=== PATIENT | female | born 1995 | race American Indian/Alaskan Native ===

== ENCOUNTER 2018-04-07 17:40 | Emergency (ER) | payer SELFPAY ==
[2018-04-07 18:31] LABS: Basophils % (Auto) 0.4 % (0.0-1.8); Lymphocytes # (Auto) 0.9 K/mm3 (1.2-5.4); Lymphocytes % (Auto) 10.1 % (13.4-35.0); Monocytes # (Auto) 0.3 K/mm3 (0.0-0.8); Monocytes % (Auto) 3.8 % (0.0-7.3)
[2018-04-07] MEDS ORDERED: NACL 0.9% 1000 ML 1,000 ML IV ONE (18:31)
[2018-04-07 18:42] LABS: Hematocrit 38.5 % (30.3-42.9); Hemoglobin 13.8 gm/dl (10.1-14.3); Mean Corpuscular HGB Conc 36 % (30-34); Mean Corpuscular Hemoglobin 32 pg (28-32); Mean Corpuscular Volume 90 fl (79-97); Red Blood Count 4.27 M/mm3 (3.65-5.03)
[2018-04-07 18:43] LABS: Mean Platelet Volume 7.4 fl (6-12); Platelet Count 366 K/mm3 (140-440); Red Cell Distribution Width 13.4 % (13.2-15.2)
[2018-04-07 18:45] LABS: Alanine Aminotransferase 13 units/L (7-56); Albumin 4.4 g/dL (3.9-5); BUN/Creatinine Ratio 10; Blood Urea Nitrogen 7 mg/dL (7-17); Calcium 9.4 mg/dL (8.4-10.2); Hemolysis Index 3
[2018-04-07] MEDS ORDERED: FIORICET PO ONE (18:50)
[2018-04-07 19:10] LABS: Creatine Kinase MB 1.8 ng/mL (0.0-4.0)
[2018-04-07 19:21] LABS: Free T4 (Free Thyroxine) 1.36 ng/dL (0.76-1.46)
--- NOTE | 2018-04-07 19:30 | Emergency Department Report ---
HPI - General Chief Complaint: Chest Pain Time Seen by Provider: 04/07/18 18:20 - HPI HPI: Room 26 The patient is a 22-year-old female presenting with chief complaint of palpitations and headache. The patient states for one week she's intermittent palpitations headache patient states at times she is taking both arms and both legs. The patient states she went to [facility] Tuesday was evaluated with imaging and EKG and diagnosed with anxiety. Patient was discharged. The patient states she went to [facility] emergency department where she had a CT of the head performed which was negative. The patient was found banging her head on the [facility] and reportedly making threats (according to [facility] nursing) but she wanted to kill herself. The patient was placed under 1013 and sent to [place]. Currently the patient only complains of a headache and lightheadedness. Location: [See above] Duration: Intermittent 6 days Quality: [See above] Severity: [See above] Modifying factors: [see above] Context: [see above] Mode of transportation: [not driving] ED Past Medical Hx - Past Medical History Previous Medical History?: Yes Hx Psychiatric Treatment: Yes Additional medical history: ADHD, - Surgical History Past Surgical History?: Yes Additional Surgical History: right hand tendon repair. hernia repair - Family History Family history: no significant - Social History Smoking Status: Never Smoker Substance Use Type: None (denies illicit drug use), Alcohol (occasional) ED Review of Systems ROS: Stated complaint: ANXIETY DISORDER Other details as noted in HPI Respiratory: shortness of breath Cardiovascular: palpitations Gastrointestinal: nausea Physical Exam - Physical Exam Vital Signs: Vital Signs 04/07/18 17:56 Temperature 98.6 F Pulse Rate 116 H Respiratory 16 Rate Blood Pressure 134/85 O2 Sat by Pulse 98 Oximetry Physical Exam: GENERAL: The patient is well-developed well-nourished female standing in room not appearing to be in acute distress. [] HEENT: Normocephalic. Atraumatic. Extraocular motions are intact. Patient has moist mucous membranes. NECK: Supple. Trachea midline CHEST/LUNGS: Clear to auscultation. There is no respiratory distress noted. HEART/CARDIOVASCULAR: Regular. There is no tachycardia. There is no gallop rub or murmur. ABDOMEN: Abdomen is soft, nontender. Patient has normal bowel sounds. There is no abdominal distention. SKIN: There is no rash. There is no edema. There is no diaphoresis. NEURO: The patient is awake, alert, and oriented. The patient is cooperative. The patient has no focal neurologic deficits. The patient has normal speech and gait. Cranial nerves II through XII grossly intact, no drift MUSCULOSKELETAL: There is no evidence of acute injury. ED Course Vital Signs 04/07/18 17:56 Temperature 98.6 F Pulse Rate 116 H Respiratory 16 Rate Blood Pressure 134/85 O2 Sat by Pulse 98 Oximetry - Consultations Consultation #1: 04/07/18 19:36 Discussed patient with nursing [facility] emergency department that was involved with the patient's care yesterday. She is able to repeat the head CT report to me which was read as negative. Consultation #2: 04/07/18 20:27 Medical records obtained from [facility] reveal a CT angiogram of the chest was performed 04/05/2018 that reads "no evidence for pulmonary embolism as described. Please refer to the additional findings/prescriptions. No evidence of focal pulmonary consolidation. Incidental nonacute findings. ED Medical Decision Making - Lab Data Result diagrams: 04/07/18 18:13 04/07/18 18:13 Laboratory Tests 04/07/18 04/07/18 04/07/18 18:13 18:13 18:13 WBC 8.8 RBC 4.27 Hgb 13.8 Hct 38.5 MCV 90 MCH 32 MCHC 36 H RDW 13.4 Plt Count 366 Lymph % (Auto) 10.1 L [place] % (Auto) 3.8 Eos % (Auto) 0.0 Baso % (Auto) 0.4 Lymph # 0.9 L [place] # 0.3 Eos # 0.0 Baso # 0.0 Seg Neutrophils % 85.7 H Seg Neutrophils # 7.7 Sodium 137 Potassium 4.1 Chloride 104.6 Carbon Dioxide 21 L Anion Gap 16 BUN 7 Creatinine 0.7 Estimated GFR > 60 BUN/Creatinine Ratio 10 Glucose 108 H Calcium 9.4 Total Bilirubin 0.40 AST 15 ALT 13 Alkaline Phosphatase 54 Total Creatine Kinase CK-MB (CK-2) CK-MB (CK-2) Rel Index Troponin T < 0.010 Total Protein 7.0 Albumin 4.4 Albumin/Globulin Ratio 1.7 TSH Free T4 Urine Color Urine Turbidity Urine pH Ur Specific [place] Urine Protein Urine Glucose (UA) Urine Ketones Urine Blood Urine Nitrite Urine Bilirubin Urine Urobilinogen Ur Leukocyte Esterase Urine WBC (Auto) Urine RBC (Auto) U Epithel Cells (Auto) Urine Mucus 04/07/18 04/07/18 04/07/18 18:39 18:39 19:33 WBC RBC Hgb Hct MCV MCH MCHC RDW Plt Count Lymph % (Auto) [place] % (Auto) Eos % (Auto) Baso % (Auto) Lymph # [place] # Eos # Baso # Seg Neutrophils % Seg Neutrophils # Sodium Potassium Chloride Carbon Dioxide Anion Gap BUN Creatinine Estimated GFR BUN/Creatinine Ratio Glucose Calcium Total Bilirubin AST ALT Alkaline Phosphatase Total Creatine Kinase 120 CK-MB (CK-2) 1.8 CK-MB (CK-2) Rel Index 1.5 Troponin T Total Protein Albumin Albumin/Globulin Ratio TSH 0.287 Free T4 1.36 Urine Color Yellow Urine Turbidity Clear Urine pH 6.0 Ur Specific [place] 1.016 Urine Protein <15 mg/dl Urine Glucose (UA) Neg Urine Ketones Neg Urine Blood Neg Urine Nitrite Neg Urine Bilirubin Neg Urine Urobilinogen < 2.0 Ur Leukocyte Esterase Neg Urine WBC (Auto) 3.0 Urine RBC (Auto) 4.0 U Epithel Cells (Auto) 9.0 Urine Mucus Few - EKG Data -: EKG Interpreted by [place] EKG shows normal: sinus rhythm Rate: normal - EKG Data When compared to previous EKG there are: previous EKG unavailable Interpretation: other (no ischemic changes seen) - Differential Diagnosis hypothyroidism, anxiety, PE, dysrhythmia, ACS Critical care attestation.: If time is entered above; I have spent that time in minutes in the direct care of this critically ill patient, excluding procedure time. ED Disposition Clinical Impression: Lightheadedness Disposition: [id number]/TX-[id number] PSY HOSP/PSY UNIT Is pt being admited?: No Does the pt Need Aspirin: No Condition: Stable Instructions: Palpitations (ED) Additional Instructions: Return to the emergency department immediately should you develop worsening symptoms, fever, inability to tolerate food or liquid or any other concerns. Referrals: PRIMARY CARE, [Primary Care Provider] - 3-5 Days Time of Disposition: 20:29
[2018-04-07 19:53] LABS: Bilirubin,Urine NEG (Negative); Blood,Urine NEG (Negative); Color,Urine Yellow (Yellow); Mucus,Urine FEW /HPF; Protein,Urine <15 mg/dL mg/dL (Negative); Urobilinogen,Urine < 2.0 mg/dL (<2.0)
[2018-04-08] MEDS ORDERED: NORCO 5/325 ONE (01:52)
[2018-04-08] MEDS ORDERED: NORCO 5/325 PO ONE (02:08)
[2018-04-08 02:37] VITALS: BP 121/71
== END 2018-04-08 02:39 ==
LOC: ED 17:40
DX: R42 Dizziness and giddiness (principal); F41.9 Anxiety disorder, unspecified; R06.02 Shortness of breath; R11.2 Nausea with vomiting, unspecified; F90.9 Attention-deficit hyperactivity disorder, unspecified type; Z88.1 Allergy status to other antibiotic agents
CPT/HCPCS: 36415; 80053; 81001; 82550; 82553; 84439; 84443; 84484; 85025; 93005; 93010; 96360; 99284; J7030